=== PATIENT | female | born 1995 ===

== ENCOUNTER 2019-02-17 12:37 | Emergency (ER) | payer MEDICAID ==
[~2019-02-17] VITALS: Ht 157.5 cm; Wt 76.7 kg
[2019-02-17 12:39] VITALS: BP 128/84
--- NOTE | 2019-02-17 13:03 | NUR ---
CHARTER COORDINATOR: PT WALKED BACK FROM [facility] TO [facility] AT THIS TIME. STEADY UPON AMBULATION. NAD NOTED.
[2019-02-17] MEDS ORDERED: ONDANSETRON ODT 4 MG ONE (13:23)
[2019-02-17] MEDS ORDERED: LORazepam 1MG TABLET ONE (13:27)
[2019-02-17] MEDS ORDERED: LORazepam 1MG TABLET PO ONE (13:30)
[2019-02-17] MEDS ORDERED: ONDANSETRON ODT 4 MG PO ONE (13:30)
[2019-02-17 13:32] LABS: BASOPHILS # (AUTO) 0.02 x10^3/uL (0-0.1); BASOPHILS % (AUTO) 1 % (0-1); EOSINOPHILS % (AUTO) 3 % (1-7); LYMPHOCYTES # (AUTO) 1.62 x10^3/uL (1-3.4); LYMPHOCYTES % (AUTO) 45 % (22-44); MD NO; MEAN CORPUSCULAR HEMOGLOBIN 28.5 pg (27.0-34.8); MEAN CORPUSCULAR HGB CONC 32.9 g/dL (32.4-35.8); MEAN CORPUSCULAR VOLUME 86.6 fL (80-100); MEAN PLATELET VOLUME 8.7 fL (7.4-10.4); MONOCYTES # (AUTO) 0.48 x10^3/uL (0.2-0.8); MONOCYTES % (AUTO) 13 % (2-9); NEUTROPHILS # (AUTO) 1.38 x10^3/uL (1.8-6.8); NEUTROPHILS % (AUTO) 38 % (42-75); PLATELET COUNT 397 x10^3/uL (130-400); RED BLOOD COUNT 4.93 x10^6/uL (3.82-5.3); RED CELL DISTRIBUTION WIDTH 14.2 % (9.6-15.2)
[2019-02-17 13:41] LABS: ALBUMIN 4.1 g/dL (3.4-5.0); ANION GAP 5 mmol/L (5-15); CALCIUM 9.1 mg/dL (8.5-10.1); CHLORIDE 110 mmol/L (98-107); CREATININE 1.02 mg/dL (0.55-1.02)
--- NOTE | 2019-02-17 14:23 | NUR ---
LATE ENTRY - 1417 THIS FLOAT RN AT BEDSIDE. PT RETURNED FROM US. UA COLLECTED AND SENT TO LAB. 1420 - ED MD AT BEDSIDE
[2019-02-17 14:32] LABS: HCG UR SG 1.023 (1.003-1.030)
--- NOTE | 2019-02-17 14:34 | NUR ---
XRAY DELAY- HCG ORDERED
[2019-02-17 14:48] LABS: MICROSCOPIC INDICATED
[2019-02-17 14:54] LABS: CULTURE INDICATED? YES
== END 2019-02-17 14:35 | disposition left against medical advice (07) ==
LOC: ED 14:28
DX: N93.9 Abnormal uterine and vaginal bleeding, unspecified (principal); R11.2 Nausea with vomiting, unspecified; F17.210 Nicotine dependence, cigarettes, uncomplicated
CPT/HCPCS: 36415; 76830; 80048; 81001; 81025; 82040; 85025; 87086; 93005; 99284; Q0162